=== PATIENT | female | born 1995 | race Asian ===

== ENCOUNTER 2018-06-06 00:11 | Emergency (ER) | payer OTHER ==
[2018-06-06] MEDS ORDERED: Lidocaine 2% PF * 5 ML VIAL ONE (02:57)
--- NOTE | 2018-06-06 03:21 | ED ---
Skin Complaint - HPI Summary HPI Summary: Patient is a 23 y/o F presenting to ED with complaints of left ear pain, redness , and swelling. She states that her partner accidentally hit her ear this morning. The ear subsequently became red, swollen and painful later in the evening. Patient notes that she has a piercing at this ear from March of this year. She went to [facility], was told that they "do not have time to treat her" and was told to come back the next day. Patient decided to come to [facility]. On triage, pain is rated 5/10, nothing is noted to aggravate/alleviate Sx. Home medications and allergies are reviewed. - History of Current Complaint Chief Complaint: EDEarPain Time Seen by Provider: 06/06/18 02:34 Stated Complaint: EAR PAIN Hx Obtained From: Patient Onset/Duration: Started Hours Ago, Still Present Skin Exposure Onset/Duration: Hours Ago Timing: Constant, Lasting Hours Current Severity: Moderate - 5/10 Pain Intensity: 5 Pain Scale Used: 0-10 Numeric - 5/10 Skin Location: Ear - left Character: Swelling, Pain, Redness, Painful Aggravating Symptom(s): Nothing Alleviating Symptom(s): Nothing Associated Signs & Symptoms: Negative - Allergy/Home Medications Allergies/Adverse Reactions: Allergies Allergy/AdvReac Type Severity Reaction Status Date / Time No Known Allergies Allergy Verified 06/06/18 00:16 PMH/Surg Hx/FS Hx/Imm Hx Sensory History: Denies: Hx Legally Blind, Hx Deafness Opthamlomology History: Denies: Hx Legally Blind EENT History: Denies: Hx Deafness Infectious Disease History: No Infectious Disease History: Denies: Traveled Outside the [place] in Last 30 Days - Family History Known Family History: Negative: Blood Disorder - Social History Alcohol Use: None Substance Use Type: Reports: None Smoking Status (MU): Never Smoked Tobacco Review of Systems Negative: Fever - on vitals, temp is 98.2 F Positive: Other - left ear pain, redness, and swelling All Other Systems Reviewed And Are Negative: Yes Physical Exam - Summary Physical Exam Summary: VITAL SIGNS: Reviewed. GENERAL: Patient is a well-developed and nourished female who is lying comfortable in the stretcher. Patient is not in any acute respiratory distress. HEAD AND FACE: No signs of trauma. No ecchymosis, hematomas or skull depressions. No sinus tenderness. EYES: PERRLA, EOMI x 2, No injected conjunctiva, no nystagmus. EARS: Hearing grossly intact. Ear canals and tympanic membranes are within normal limits. Left auricle is red, tender, mildly swollen. Two earrings, one of which is embedded underneath the skin, is noted. No discharge, fluctuance. MOUTH: Oropharynx within normal limits. NECK: Supple, trachea is midline, no adenopathy, no JVD, no carotid bruit, no c- spine tenderness, neck with full ROM. CHEST: Symmetric, no tenderness at palpation LUNGS: Clear to auscultation bilaterally. No wheezing or crackles. CVS: Regular rate and rhythm, S1 and S2 present, no murmurs or gallops appreciated. ABDOMEN: Soft, non-tender. No signs of distention. No rebound no guarding, and no masses palpated. Bowel sounds are normal. EXTREMITIES: FROM in all major joints, no edema, no cyanosis or clubbing. NEURO: Alert and oriented x 3. No acute neurological deficits. Speech is normal and follows commands. SKIN: Dry and warm Triage Information Reviewed: Yes Vital Signs On Initial Exam: Initial Vitals Temp Pulse Resp BP Pulse Ox 98.2 F 69 16 113/79 98 06/06/18 00:14 06/06/18 00:14 06/06/18 00:14 06/06/18 00:14 06/06/18 00:14 Vital Signs Reviewed: Yes Procedures - Laceration/Wound Repair 1 Location: Other - LEFT EAR Anesthesia: Local, 2.0%, Lido Laceration/Wound Explored: foreign body removed - earring at proximal part of auricle was removed, intact, there was oozing aftewards Closure: Single Layer Suture Type: Prolene - 6-0 Number of Sutures: 1 Layer Closure?: Yes Diagnostics - Vital Signs Vital Signs Temp Pulse Resp BP Pulse Ox 06/06/18 00:14 98.2 F 69 16 113/79 98 - Laboratory Lab Statement: Any lab studies that have been ordered have been reviewed, and results considered in the medical decision making process. Re-Evaluation - Re-Evaluation First Eval Re-Evaluation Time: 03:00 Change: Improved Comment: Earring removed, laceration repaired. Course/Dx - Course Course Of Treatment: Patient is a 23 y/o F presenting to ED with complaints of left ear pain, redness, and swelling. She states that her partner accidentally hit her ear this morning. The ear subsequently became red, swollen and painful later in the evening. Patient notes that she has a piercing at this ear from March of this year. She went to [facility], was told that they "do not have time to treat her" and was told to come back the next day. Patient decided to come to [facility]. On physical exam, left auricle is red, tender, mildly swollen. Two earrings, one of which is embedded underneath the skin, is noted. No discharge, fluctuance. Laceration repair: lido 2% local without epi was applied. Earring at proximal part of auricle was removed, intact, there was oozing aftewards. 1 suture, 6-0 prolone, was applied, single layer with layer closure. During ED course, patient received Percocet 5/325 tab PO ONCE ONE, Motrin 600 mg PO ED ONCE ONE, and Cleocin Cap 300 mg PO ED ONCE ONE. - Diagnoses Provider Diagnoses: Foreign body in auricle of left ear, Cellulitis of auricle of left ear, Laceration of auricle of left ear Discharge - Sign-Out/Discharge Documenting (check all that apply): Patient Departure - DISCHARGE - Discharge Plan Condition: Stable Disposition: HOME Prescriptions: Clindamycin Cap(NF) [Clindamycin Cap 300 mg Cap(NF)] 300 mg PO Q6H #30 cap Ibuprofen TAB* [Motrin TAB* 600 MG] 600 mg PO Q6H PRN #30 tab PRN Reason: Pain Patient Education Materials: Laceration (ED), Cellulitis (ED) Referrals: Chalo Cook MD [Medical Doctor] - 3 Days Additional Instructions: RETURN TO THE EMERGENCY DEPARTMENT FOR CHANGING OR WORSENING SYMPTOMS. FOLLOW UP WITH ENT DOCTOR IN THREE DAYS FRIDAY. APPLY ICE TO AREA AND TAKE PRESCRIBED MEDICATIONS. STITCHES OUT IN SEVEN DAYS. - Attestation Statements Document Initiated by Scribe: Yes Documenting Scribe: ADRIANA LOCO Provider For Whom Scribe is Documenting (Include Credential): IMELDA SPIVEY MD Scribe Attestation: ADRIANA Barbosa , scribed for IMELDA SPIVEY MD on 06/06/18 at 0541. Status of Scribe Document: Ready
[2018-06-06] MEDS ORDERED: Ibuprofen TAB* 600 MG PO ONE (03:27)
[2018-06-06] MEDS ORDERED: oxyCODONE/Acetamin 5/325 MG* TAB PO ONE (03:27)
[2018-06-06] MEDS ORDERED: Clindamycin CAP* 150 MG PO ONE (03:27)
[2018-06-06 04:37] VITALS: BP 108/62
== END 2018-06-06 04:36 | disposition home or self-care (01) ==
LOC: ED 00:11
DX: S01.322A Laceration with foreign body of left ear, initial encounter (principal); T16.2XXA Foreign body in left ear, initial encounter; H92.02 Otalgia, left ear; X58.XXXA Exposure to other specified factors, initial encounter; Y92.9 Unspecified place or not applicable
CPT/HCPCS: 99282; A9270-GY